=== PATIENT | female | born 1935 | race Caucasian/White ===

== ENCOUNTER 2020-10-25 11:59 | Inpatient (IN) | payer OTHER ==
[~2020-10-25] VITALS: Ht 149.9 cm; Wt 64.0 kg
[~2020-10-25 11:59] MED LIST: DULO60CA64 PO; FURO20TA4 PO; LISI20TA24 PO; LORA-868 PO; METF-444 PO; NIAC500T22 PO
[2020-10-25 12:40] LABS: BASOPHILS % (AUTO) 0.3 % (0.0-5.0); EOSINOPHILS % (AUTO) 0.7 % (0.0-8.0); HEMATOCRIT 35.4 % (36-48); LYMPHOCYTES % (AUTO) 2.6 % (21.0-51.0); MEAN CORPUSCULAR HEMOGLOBIN 28.5 pg (27.0-33.0); MEAN CORPUSCULAR HGB CONC 34.2 g/dL (32.0-36.0); MEAN CORPUSCULAR VOLUME 83.3 fL (79-99); MONOCYTES % (AUTO) 6.1 % (3.0-13.0); NEUTROPHILS % (AUTO) 89.9 % (40.0-77.0); PLATELET COUNT (AUTO) 200 K/uL (130-400); RED BLOOD CELL COUNT(AUTO) 4.25 MIL/uL (4.00-5.50); RED CELL DISTRIBUTION WIDTH 14.3 % (11.0-15.5); WHITE BLOOD COUNT (AUTO) 10.9 K/uL (4.8-10.8)
[2020-10-25 12:47] LABS: APPEARANCE,URINE Clear (CLEAR); BILIRUBIN,URINE Small (NEGATIVE); COLOR,URINE Dark Yellow (YELLOW); GLUCOSE, URINE (UA) Negative (NEGATIVE); KETONES,URINE Negative (NEGATIVE); LEUKOCYTE ESTERASE ,URINE Trace (NEGATIVE); NITRATE,URINE Negative (NEGATIVE); OCCULT BLOOD,URINE Negative (NEGATIVE); PH,URINE 7.5 (5.0-8.0); PROTEIN,URINE Negative (NEGATIVE)
[2020-10-25 12:55] LABS: BACTERIA,URINE Rare /HPF (None Seen); RBC,URINE None Seen /HPF (0-1); SQUAMOUS EPITHELIAL CELL,UR Few /HPF (0-2); WBC,URINE 0-1 /HPF (0-1)
[2020-10-25 13:01] LABS: ALBUMIN 3.5 g/dL (3.5-5.0); BILIRUBIN,TOTAL 3.2 mg/dL (0.2-1.0); CREATININE 1.2 mg/dL (0.5-1.5); POTASSIUM 3.7 mmol/L (3.5-5.1); TOTAL PROTEIN, SERUM 6.9 g/dL (6.0-8.3)
[2020-10-25] MEDS ORDERED: ACETAMINOPHEN 325 MG TAB ONE (13:44)
[2020-10-25] MEDS ORDERED: ASPIRIN 325 MG TABLET ONE ×2 (13:44→13:47)
[2020-10-25 13:57] LABS: INR 1.04 (0.85-1.15); PROTHROMBIN TIME 11.3 SEC (9.6-11.6)
[2020-10-25 13:58] LABS: PARTIAL THROMBOPLASTIN TIME 23.9 SEC (26.3-35.5)
[2020-10-25] MEDS ORDERED: 0.9%NACL 1000ML 1,000 ML IV ONE (13:59)
[2020-10-25] MEDS ORDERED: 0.9%NACL 100ML 100 ML IV ONE (13:59)
[2020-10-25] MEDS ORDERED: CEFTRIAXONE 1G VIAL ONE (13:59)
[2020-10-25] MEDS ORDERED: AZITHROMYCIN 250 MG TABLET PO ONE (14:06)
[2020-10-25 14:15] LABS: CREATINE KINASE, TOTAL 151 U/L (21-232); LIPASE 62 U/L (114-286)
[2020-10-25 14:19] LABS: ABG BASE EXCESS -2.4 mmol/L (-2.0-3.0); ABG HCO3 20.9 mmol/L (21.0-28.0); ABG OXYGEN SATURATION 92.4 % (95.0-99.0); ABG PCO2 32 mmHg (32-45)
[2020-10-25] MEDS ORDERED: ONDANSETRON 4MG INJ IVP PRN (16:30)
[2020-10-25] MEDS ORDERED: ACETAMINOPHEN 650 MG SUPPOSITORY RC PRN (16:30)
[2020-10-25] MEDS ORDERED: LACTULOSE 20 GM/30 ML UDCUP PO PRN (16:30)
[2020-10-25] MEDS ORDERED: MORPHINE 2 MG SYG IVP PRN (16:30)
[2020-10-25] MEDS: LACTATED RINGERS 1000ML 1,000 ML IV SCH ×2 (16:30→22:35)
[2020-10-25] MEDS ORDERED: IOHEXOL-350 75 ML VIAL IV ONE (16:54)
[2020-10-25] MEDS ORDERED: LEVOFLOXACIN 500 MG/D5W 100 ML IV SCH (17:00)
[2020-10-25] MEDS ORDERED: LEVOFLOXACIN 500 MG/D5W 100 ML 100 ML IV ONE (17:00)
[2020-10-25] MEDS ORDERED: KETOROLAC 30MG VIAL (30MG/ML) ONE (17:34)
[2020-10-25] MEDS ORDERED: CLINDAMYCIN IVPB 600MG/50ML 0 ML IV ONE (17:35)
[2020-10-25] MEDS ORDERED: HYDROCODONE/ACETAMINOPHEN 5/325 MG TAB ONE (17:35)
[2020-10-25] MEDS ORDERED: LACTATED RINGERS 1000ML 1,000 ML IV ONE (17:37)
[2020-10-25] MEDS ORDERED: LEVOFLOXACIN 500 MG/D5W 100 ML 100 ML ONE (17:37)
[2020-10-25] MEDS: METRONIDAZOLE 500MG/100ML BAG 100 ML IVPB SCH (18:00)
[2020-10-25 18:18] LABS: CREATINE KINASE, TOTAL 147 U/L (21-232); MYOGLOBIN 173 ng/mL (10-92); TROPONIN I < 0.04 ng/mL (0.00-0.06)
[2020-10-25] MEDS ORDERED: METRONIDAZOLE 500MG/100ML BAG 100 ML ONE (21:38)
[2020-10-25] MEDS ORDERED: FAMOTIDINE 20MG VIAL IV ONE (21:39)
[2020-10-25 22:08] VITALS: BP 123/57
[2020-10-25] MEDS: FAMOTIDINE 20MG VIAL IV SCH (22:34)
[2020-10-25 22:49] LABS: CREATINE KINASE, TOTAL 319 U/L (21-232); MYOGLOBIN 260 ng/mL (10-92); TROPONIN I < 0.04 ng/mL (0.00-0.06)
[2020-10-25] MEDS ORDERED: LORA10TA7 PO (22:58)
[2020-10-25] MEDS ORDERED: METF-444 PO (22:58)
[2020-10-25] MEDS ORDERED: PANT40TA54 PO (22:58)
[2020-10-25] MEDS ORDERED: DULO60CA64 PO (22:58)
[2020-10-25] MEDS ORDERED: LISI5TAB21 PO (22:58)
[2020-10-25] MEDS ORDERED: PRAV20TA4 PO (22:58)
[2020-10-25 23:42] VITALS: BP 110/49
[2020-10-26] VITALS (7 sets, daily range): BP systolic 90–127; BP diastolic 34–59
[2020-10-26] MEDS ORDERED: ALBUTEROL 0.083% 2.5 MG/3 ML INH IH ONE (01:57)
[2020-10-26] MEDS: ALBUTEROL 0.083% 2.5 MG/3 ML INH IH SCH ×7 (02:00→22:44)
[2020-10-26] MEDS: METRONIDAZOLE 500MG/100ML BAG 100 ML IVPB SCH ×3 (03:34→17:21)
[2020-10-26 05:06] LABS: BASOPHILS % (AUTO) 0.1 % (0.0-5.0); EOSINOPHILS % (AUTO) 0.4 % (0.0-8.0); MEAN CORPUSCULAR HEMOGLOBIN 27.7 pg (27.0-33.0); MEAN CORPUSCULAR HGB CONC 33.1 g/dL (32.0-36.0); MEAN CORPUSCULAR VOLUME 83.8 fL (79-99); MONOCYTES % (AUTO) 7.9 % (3.0-13.0); NEUTROPHILS % (AUTO) 84.3 % (40.0-77.0); PLATELET COUNT (AUTO) 130 K/uL (130-400); RED BLOOD CELL COUNT(AUTO) 3.46 MIL/uL (4.00-5.50); RED CELL DISTRIBUTION WIDTH 14.3 % (11.0-15.5); WHITE BLOOD COUNT (AUTO) 6.9 K/uL (4.8-10.8)
[2020-10-26 05:16] LABS: INR 1.32 (0.85-1.15)
[2020-10-26 05:37] LABS: CARBON DIOXIDE 25 mmol/L (21-32); CHLORIDE 105 mmol/L (101-111); CREATINE KINASE, TOTAL 360 U/L (21-232); CREATININE 0.9 mg/dL (0.5-1.5); GLOMERULAR FILTR. RATE CALC 64 mL/min (>60); GLUCOSE,RANDOM 114 mg/dL (70-105); MYOGLOBIN 215 ng/mL (10-92); PHOSPHORUS 2.8 mg/dL (2.5-4.9); POTASSIUM 3.5 mmol/L (3.5-5.1); SODIUM SERUM 139 mmol/L (136-145); THYROID STIMULATING HORMONE 1.64 uIU/mL (0.36-3.74); TROPONIN I < 0.04 ng/mL (0.00-0.06); UREA NITROGEN, BLOOD 17 mg/dL (7-18)
[2020-10-26] MEDS: LACTATED RINGERS 1000ML 1,000 ML IV SCH ×2 (08:54→15:56)
[2020-10-26] MEDS: ENOXAPARIN SODIUM 40 MG/0.4 ML SYRINGE SQ SCH (08:55)
[2020-10-26] MEDS ORDERED: MAGNESIUM 2GM PREMIX 50ML 50 ML IV PRN (15:00)
[2020-10-26] MEDS: FAMOTIDINE 20MG VIAL IV SCH (21:49)
[2020-10-27] MEDS: LACTATED RINGERS 1000ML 1,000 ML IV SCH ×3 (01:12→20:51)
[2020-10-27] MEDS: ALBUTEROL 0.083% 2.5 MG/3 ML INH IH SCH ×7 (01:20→22:01)
[2020-10-27 04:00] VITALS: BP 128/74
[2020-10-27 05:24] LABS: HEMATOCRIT 27.2 % (36-48); MEAN CORPUSCULAR HEMOGLOBIN 28.4 pg (27.0-33.0); MEAN CORPUSCULAR HGB CONC 34.6 g/dL (32.0-36.0); MEAN CORPUSCULAR VOLUME 82.2 fL (79-99); RED BLOOD CELL COUNT(AUTO) 3.31 MIL/uL (4.00-5.50); RED CELL DISTRIBUTION WIDTH 14.5 % (11.0-15.5)
[2020-10-27 05:48] LABS: ALBUMIN 2.9 g/dL (3.5-5.0); BILIRUBIN,TOTAL 2.2 mg/dL (0.2-1.0); CREATININE 0.9 mg/dL (0.5-1.5); POTASSIUM 3.2 mmol/L (3.5-5.1); TOTAL PROTEIN, SERUM 6.6 g/dL (6.0-8.3)
[2020-10-27 08:00] VITALS: BP 155/67
[2020-10-27] MEDS: ENOXAPARIN SODIUM 40 MG/0.4 ML SYRINGE SQ SCH (10:58)
[2020-10-27] MEDS: LEVOFLOXACIN 250 MG/D5W 50ML 50 ML IVPB SCH (10:58)
[2020-10-27 12:08] VITALS: BP 164/66
[2020-10-27] MEDS ORDERED: METRONIDAZOLE 500MG/100ML BAG 100 ML ONE (12:52)
[2020-10-27] MEDS: METRONIDAZOLE 500MG/100ML BAG 100 ML IVPB SCH ×2 (13:01→20:52)
[2020-10-27] MEDS ORDERED: LIDOCAINE PF 100MG/5ML (2%) SYRINGE 5ML ONE (13:21)
[2020-10-27] MEDS ORDERED: PROPOFOL 10 MG/ML 20ML VIAL IV ONE (13:21)
[2020-10-27] MEDS ORDERED: SUCCINYLCHOLINE CHLORIDE 20 MG/ML 10 ML VIAL ONE (13:21)
[2020-10-27] MEDS ORDERED: GLYCOPYRROLATE 1 MG/5 ML SYRINGE ONE (13:21)
[2020-10-27] MEDS ORDERED: NEOSTIGMINE 5MG/5ML SYR IV ONE (13:22)
[2020-10-27] MEDS ORDERED: ROCURONIUM 10MG/1ML SYR 10 MG/ML ML ONE (13:22)
[2020-10-27] MEDS ORDERED: FENTANYL CITRATE PF 50 MCG/1 ML 2ML VIAL ONE (13:22)
[2020-10-27] MEDS ORDERED: 0.9%NACL 1000ML 1,000 ML IV ONE (14:10)
[2020-10-27 14:26] LABS: ABG BASE EXCESS -1.8 mmol/L (-2.0-3.0); ABG OXYGEN SATURATION 91.4 % (95.0-99.0); ABG PCO2 30 mmHg (32-45)
[2020-10-27] MEDS ORDERED: SOLU-MEDROL 125MG VIAL ONE (14:37)
[2020-10-27] MEDS ORDERED: HYDROCORTISONE SOD SUCCINATE 100 MG/2 ML VIAL ONE (14:38)
[2020-10-27] MEDS ORDERED: FUROSEMIDE 40MG VIAL IV SCH (14:43)
[2020-10-27 16:00] VITALS: BP 152/62
[2020-10-27] MEDS ORDERED: LEVOFLOXACIN 250 MG/D5W 50ML 50 ML IVPB SCH (17:00)
[2020-10-27 19:52] VITALS: BP 137/61
[2020-10-27] MEDS: FAMOTIDINE 20MG VIAL IV SCH (20:51)
[2020-10-27 23:20] VITALS: BP 142/62
[2020-10-28] MEDS: LACTATED RINGERS 1000ML 1,000 ML IV SCH ×3 (00:30→20:45)
[2020-10-28] MEDS: FUROSEMIDE 20MG VIAL IV SCH ×3 (01:30→21:21)
[2020-10-28] MEDS: ALBUTEROL 0.083% 2.5 MG/3 ML INH IH SCH ×6 (02:00→23:09)
[2020-10-28 04:04] VITALS: BP 128/64
[2020-10-28 04:34] LABS: ABG BASE EXCESS 3.7 mmol/L (-2.0-3.0); ABG HCO3 26.8 mmol/L (21.0-28.0); ABG OXYGEN SATURATION 95.1 % (95.0-99.0); ABG PCO2 36 mmHg (32-45)
[2020-10-28] MEDS: METRONIDAZOLE 500MG/100ML BAG 100 ML IVPB SCH ×3 (04:43→21:20)
[2020-10-28 04:51] LABS: HEMATOCRIT 27.3 % (36-48); MEAN CORPUSCULAR HEMOGLOBIN 28.2 pg (27.0-33.0); MEAN CORPUSCULAR HGB CONC 34.8 g/dL (32.0-36.0); RED BLOOD CELL COUNT(AUTO) 3.37 MIL/uL (4.00-5.50); RED CELL DISTRIBUTION WIDTH 14.5 % (11.0-15.5); WHITE BLOOD COUNT (AUTO) 6.9 K/uL (4.8-10.8)
[2020-10-28 04:57] LABS: CREATININE 0.8 mg/dL (0.5-1.5); POTASSIUM 3.2 mmol/L (3.5-5.1)
[2020-10-28 08:00] VITALS: BP 140/59
[2020-10-28] MEDS: ENOXAPARIN SODIUM 40 MG/0.4 ML SYRINGE SQ SCH (08:15)
[2020-10-28] MEDS ORDERED: LIDOCAINE HCL-MPF 1% 2ML VIAL IV PRN (10:15)
[2020-10-28] MEDS ORDERED: POTASSIUM CHLORIDE 20MEQ/100ML 100 ML IV PRN (10:15)
[2020-10-28] MEDS ORDERED: DULOXETINE HCL 30 MG CAP PO SCH (10:38)
[2020-10-28] MEDS ORDERED: SUCCINYLCHOLINE CHLORIDE 20 MG/ML 10 ML VIAL ONE (10:54)
[2020-10-28] MEDS ORDERED: DEXAMETHASONE SOD PHOSPHATE 10MG/ML 1ML VIAL ONE (10:54)
[2020-10-28] MEDS ORDERED: LIDOCAINE PF 100MG/5ML (2%) SYRINGE 5ML ONE (10:54)
[2020-10-28] MEDS ORDERED: PROPOFOL 10 MG/ML 20ML VIAL IV ONE (10:54)
[2020-10-28] MEDS ORDERED: MIDAZOLAM HCL 1 MG/ML 2ML VIAL ONE (10:55)
[2020-10-28] MEDS ORDERED: GLYCOPYRROLATE 1 MG/5 ML SYRINGE ONE (10:55)
[2020-10-28] MEDS ORDERED: ROCURONIUM 10MG/1ML SYR 10 MG/ML ML ONE (10:55)
[2020-10-28] MEDS ORDERED: FENTANYL CITRATE PF 50 MCG/1 ML 2ML VIAL ONE (10:56)
[2020-10-28 12:00] VITALS: BP 140/63
[2020-10-28] MEDS: POTASSIUM CHLORIDE 10% ELIXIR 20 MEQ/15 ML UDCUP PO PRN ×3 (14:18→17:50)
[2020-10-28 16:00] VITALS: BP 163/69
[2020-10-28 20:35] VITALS: BP 142/57
[2020-10-28] MEDS: ATORVASTATIN 20 MG TABLET PO SCH (21:20)
[2020-10-28] MEDS: FAMOTIDINE 20MG VIAL IV SCH (21:21)
[2020-10-28 23:39] VITALS: BP 130/69
[2020-10-29] VITALS (26 sets, daily range): BP systolic 106–168; BP diastolic 47–92
[2020-10-29] MEDS: ALBUTEROL 0.083% 2.5 MG/3 ML INH IH SCH ×3 (02:00→22:16)
[2020-10-29 05:32] LABS: CREATININE 0.8 mg/dL (0.5-1.5); HEMATOCRIT 32.9 % (36-48); MEAN CORPUSCULAR HEMOGLOBIN 27.3 pg (27.0-33.0); MEAN CORPUSCULAR HGB CONC 33.7 g/dL (32.0-36.0); NUCLEATED RED BLOOD CELLS 0.6 % (0.0-0.19); POTASSIUM 3.6 mmol/L (3.5-5.1); RED BLOOD CELL COUNT(AUTO) 4.06 MIL/uL (4.00-5.50); RED CELL DISTRIBUTION WIDTH 14.6 % (11.0-15.5); WHITE BLOOD COUNT (AUTO) 6.9 K/uL (4.8-10.8)
[2020-10-29] MEDS ORDERED: BUPIVACAINE/PF 0.5% 30ML VIAL ONE (06:16)
[2020-10-29] MEDS: METRONIDAZOLE 500MG/100ML BAG 100 ML IVPB SCH ×3 (06:49→21:45)
[2020-10-29] MEDS: DULOXETINE HCL 30 MG CAP PO SCH (09:00)
[2020-10-29] MEDS ORDERED: FUROSEMIDE 20 MG TABLET PO SCH (09:00)
[2020-10-29] MEDS: ENOXAPARIN SODIUM 40 MG/0.4 ML SYRINGE SQ SCH (09:00)
[2020-10-29] MEDS: LACTATED RINGERS 1000ML 1,000 ML IV SCH ×2 (10:05→23:25)
[2020-10-29] MEDS: FUROSEMIDE 20MG VIAL IV SCH ×2 (10:31→20:34)
[2020-10-29] MEDS: LEVOFLOXACIN 250 MG/D5W 50ML 50 ML IVPB SCH (10:31)
[2020-10-29] MEDS ORDERED: INDOCYANINE GREEN 25 MG VIAL IJ ONE (12:37)
[2020-10-29] MEDS ORDERED: SUCCINYLCHOLINE 200MG/10ML SYR ONE (12:46)
[2020-10-29] MEDS ORDERED: DEXAMETHASONE SOD PHOSPHATE 10MG/ML 1ML VIAL ONE (12:46)
[2020-10-29] MEDS ORDERED: LIDOCAINE PF 100MG/5ML (2%) SYRINGE 5ML ONE (12:46)
[2020-10-29] MEDS ORDERED: NEOSTIGMINE 5MG/5ML SYR IV ONE (12:47)
[2020-10-29] MEDS ORDERED: ROCURONIUM 10MG/1ML SYR 10 MG/ML ML ONE (12:47)
[2020-10-29] MEDS ORDERED: GLYCOPYRROLATE 1 MG/5 ML SYRINGE ONE (12:47)
[2020-10-29] MEDS ORDERED: FENTANYL CITRATE PF 50 MCG/1 ML 2ML VIAL ONE (12:47)
[2020-10-29] MEDS ORDERED: PROPOFOL 10 MG/ML 20ML VIAL IV ONE (12:47)
[2020-10-29] MEDS ORDERED: EPHEDRINE SULFATE 50 MG/ML AMPULE ONE (13:09)
[2020-10-29] MEDS ORDERED: MORPHINE 4 MG SYG IV PRN (16:45)
[2020-10-29] MEDS ORDERED: ONDANSETRON 4MG INJ IVP PRN (16:45)
[2020-10-29] MEDS: LORATADINE 10 MG TABLET PO SCH (18:12)
[2020-10-29] MEDS: LISINOPRIL 5 MG TABLET PO SCH (18:12)
[2020-10-29] MEDS: ATORVASTATIN 20 MG TABLET PO SCH (20:33)
[2020-10-29] MEDS: FAMOTIDINE 20MG VIAL IV SCH (20:34)
[2020-10-30] MEDS: ACETAMINOPHEN 325 MG TAB PO PRN ×2 (01:25→21:34)
[2020-10-30] MEDS: ALBUTEROL 0.083% 2.5 MG/3 ML INH IH SCH ×5 (01:59→18:00)
[2020-10-30 04:16] VITALS: BP 103/60
[2020-10-30 04:52] LABS: HEMATOCRIT 32.4 % (36-48); MEAN CORPUSCULAR HEMOGLOBIN 28.2 pg (27.0-33.0); MEAN CORPUSCULAR HGB CONC 34.3 g/dL (32.0-36.0); MEAN CORPUSCULAR VOLUME 82.2 fL (79-99); RED BLOOD CELL COUNT(AUTO) 3.94 MIL/uL (4.00-5.50); RED CELL DISTRIBUTION WIDTH 14.9 % (11.0-15.5); WHITE BLOOD COUNT (AUTO) 7.9 K/uL (4.8-10.8)
[2020-10-30 05:08] LABS: ALBUMIN 2.7 g/dL (3.5-5.0); BILIRUBIN,TOTAL 1.1 mg/dL (0.2-1.0); CREATININE 0.8 mg/dL (0.5-1.5); POTASSIUM 3.3 mmol/L (3.5-5.1); TOTAL PROTEIN, SERUM 6.3 g/dL (6.0-8.3)
[2020-10-30] MEDS: METRONIDAZOLE 500MG/100ML BAG 100 ML IVPB SCH ×3 (05:08→21:23)
[2020-10-30] MEDS: KCL 20 MEQ ERTAB PO PRN ×2 (06:20→08:20)
[2020-10-30 08:00] VITALS: BP 140/65
[2020-10-30] MEDS: DULOXETINE HCL 30 MG CAP PO SCH (08:17)
[2020-10-30] MEDS: ENOXAPARIN SODIUM 40 MG/0.4 ML SYRINGE SQ SCH (08:18)
[2020-10-30] MEDS: FUROSEMIDE 20MG VIAL IV SCH ×2 (08:18→19:48)
[2020-10-30] MEDS: SULFAMETHOX-TMP DS 800/160 TAB PO SCH ×2 (08:19→19:48)
[2020-10-30] MEDS: LORATADINE 10 MG TABLET PO SCH (08:19)
[2020-10-30] MEDS: LISINOPRIL 5 MG TABLET PO SCH (08:19)
[2020-10-30] MEDS ORDERED: ACETAMINOPHEN WITH CODEINE 1 TAB TAB PO PRN (08:45)
[2020-10-30] MEDS: LACTATED RINGERS 1000ML 1,000 ML IV SCH (11:46)
[2020-10-30 12:00] VITALS: BP 91/58
[2020-10-30 16:00] VITALS: BP 126/68
[2020-10-30] MEDS: ATORVASTATIN 20 MG TABLET PO SCH (19:48)
[2020-10-30] MEDS: FAMOTIDINE 20MG VIAL IV SCH (19:48)
[2020-10-30 19:59] VITALS: BP 131/58
[2020-10-30 23:40] VITALS: BP 126/51
[2020-10-31] MEDS: LACTATED RINGERS 1000ML 1,000 ML IV SCH ×2 (02:05→03:37)
[2020-10-31] MEDS: ALBUTEROL 0.083% 2.5 MG/3 ML INH IH SCH (02:09)
[2020-10-31 03:49] VITALS: BP 141/85
[2020-10-31 04:46] LABS: HEMATOCRIT 31.9 % (36-48); MEAN CORPUSCULAR HEMOGLOBIN 27.8 pg (27.0-33.0); MEAN CORPUSCULAR HGB CONC 33.9 g/dL (32.0-36.0); MEAN CORPUSCULAR VOLUME 82.2 fL (79-99); RED BLOOD CELL COUNT(AUTO) 3.88 MIL/uL (4.00-5.50); RED CELL DISTRIBUTION WIDTH 14.6 % (11.0-15.5); WHITE BLOOD COUNT (AUTO) 7.9 K/uL (4.8-10.8)
[2020-10-31 05:10] LABS: CREATININE 0.9 mg/dL (0.5-1.5); POTASSIUM 3.4 mmol/L (3.5-5.1)
[2020-10-31] MEDS: METRONIDAZOLE 500MG/100ML BAG 100 ML IVPB SCH ×2 (05:45→14:00)
[2020-10-31 08:00] VITALS: BP 136/73
[2020-10-31] MEDS: LORATADINE 10 MG TABLET PO SCH (09:24)
[2020-10-31] MEDS: LEVOFLOXACIN 250 MG/D5W 50ML 50 ML IVPB SCH (09:24)
[2020-10-31] MEDS: DULOXETINE HCL 30 MG CAP PO SCH (09:24)
[2020-10-31] MEDS: LISINOPRIL 5 MG TABLET PO SCH (09:24)
[2020-10-31] MEDS: SULFAMETHOX-TMP DS 800/160 TAB PO SCH (09:24)
[2020-10-31] MEDS: ENOXAPARIN SODIUM 40 MG/0.4 ML SYRINGE SQ SCH (09:25)
[2020-10-31] MEDS: FUROSEMIDE 20MG VIAL IV SCH (09:25)
[2020-10-31] MEDS: POTASSIUM CHLORIDE 10% ELIXIR 20 MEQ/15 ML UDCUP PO PRN (11:03)
[2020-10-31] MEDS ORDERED: ACET1TAB25 PO (11:28)
[2020-10-31 12:00] VITALS: BP 117/58
== END 2020-10-31 16:10 | disposition home or self-care (01) | DRG 417 ==
LOC: EDH 11:59 → EDHIP 16:28 → 4CH 21:32
PROVIDERS: ADMIT Internal Medicine Critical Care Medicine; ATTEND Internal Medicine Critical Care Medicine
PROC: 8E0W4CZ Robotic Assisted Procedure of Trunk Region, Percutaneous Endoscopic Approach (ICD-10-PCS; 2020-10-29)
PROC: 0FT44ZZ Resection of Gallbladder, Percutaneous Endoscopic Approach (ICD-10-PCS; principal; 2020-10-29 13:21)
DX: K81.0 Acute cholecystitis (principal); I50.33 Acute on chronic diastolic (congestive) heart failure; N39.0 Urinary tract infection, site not specified; E78.00 Pure hypercholesterolemia, unspecified; B96.20 Unspecified Escherichia coli [E. coli] as the cause of diseases classified elsewhere; E11.9 Type 2 diabetes mellitus without complications; E78.5 Hyperlipidemia, unspecified; E87.70 Fluid overload, unspecified; K66.0 Peritoneal adhesions (postprocedural) (postinfection); E66.3 Overweight; Z68.28 Body mass index [BMI] 28.0-28.9, adult; Z79.899 Other long term (current) drug therapy; Z90.710 Acquired absence of both cervix and uterus; Z79.84 Long term (current) use of oral hypoglycemic drugs; Z20.822 Contact with and (suspected) exposure to COVID-19; I11.0 Hypertensive heart disease with heart failure
CPT/HCPCS: 36415; 36600; 70450; 71045; 71275; 74176; 74181; 76705; 80048; 80053; 81001; 82435; 82550; 82728; 82803; 82947; 82948; 83605; 83615; 83690; 83735; 83874; 83880; 84100; 84132; 84145; 84295; 84443; 84484; 85018; 85025; 85027; 85378; 85610; 85730; 87040; 87077; 87186; 87426; 88304; 93005; 93306; 93356; 94010; 94640; 94664; 94760; G0378; J0330; J0696; J1100; J1650; J1720; J1885; J1940; J1956; J2001; J2250; J2405; J2704; J2710; J2930; J3010; J3475; J3480; J3490; J7030; J7120; Q9967; U0003

== ENCOUNTER 2021-08-10 11:00 | Observation (INO) | payer OTHER ==
[~2021-08-10] VITALS: Ht 149.9 cm; Wt 63.0 kg
[2021-08-14 09:52] LABS: EOSINOPHILS % (AUTO) 3.1 % (0.0-8.0); HEMATOCRIT 39.8 % (36-48); LYMPHOCYTES % (AUTO) 26.6 % (21.0-51.0); MEAN CORPUSCULAR HEMOGLOBIN 28.3 pg (27.0-33.0); MEAN CORPUSCULAR HGB CONC 32.9 g/dL (32.0-36.0); MONOCYTES % (AUTO) 10.9 % (3.0-13.0); NEUTROPHILS % (AUTO) 57.9 % (40.0-77.0); PLATELET COUNT (AUTO) 262 K/uL (130-400); RED BLOOD CELL COUNT(AUTO) 4.63 MIL/uL (4.00-5.50); RED CELL DISTRIBUTION WIDTH 13.6 % (11.0-15.5); WHITE BLOOD COUNT (AUTO) 6.1 K/uL (4.8-10.8)
[2021-08-14 10:06] LABS: POTASSIUM 5.1 mmol/L (3.5-5.1)
[2021-08-17 09:03] VITALS: BP 179/97
[2021-08-17] MEDS ORDERED: METF-444 PO (09:44)
[2021-08-17] MEDS ORDERED: DULO60CA45 PO (09:44)
[2021-08-17] MEDS ORDERED: PANT40TA54 PO (09:44)
[2021-08-17] MEDS ORDERED: LISI5TAB21 PO (09:44)
[2021-08-17] MEDS ORDERED: FURO20TA4 PO (09:44)
[2021-08-17] MEDS ORDERED: PRAV20TA4 PO (09:44)
[2021-08-17] MEDS ORDERED: LORA10TA7 PO (09:44)
[2021-08-18] VITALS (22 sets, daily range): BP systolic 110–143; BP diastolic 50–67
[2021-08-18] MEDS: CEFAZOLIN SODIUM 1 GM VIAL IVP SCH ×2 (06:00→07:30)
[2021-08-18] MEDS ORDERED: 0.9%NACL 1000ML 1,000 ML IV ONE (06:17)
[2021-08-18] MEDS ORDERED: BUPIVACAINE/EPI/PF 0.25% 30ML VIAL IJ ONE ×2 (06:41→07:11)
[2021-08-18] MEDS ORDERED: THROMBIN-JMI 20000 UNIT KIT TP ONE (06:41)
[2021-08-18] MEDS ORDERED: MORPHINE PF 100MG/10ML AMP IV ONE (06:41)
[2021-08-18] MEDS ORDERED: CEFAZOLIN SODIUM 1 GM VIAL ONE (06:41)
[2021-08-18] MEDS ORDERED: LIDOCAINE PF 100MG/5ML (2%) SYRINGE 5ML ONE (06:47)
[2021-08-18] MEDS ORDERED: SUCCINYLCHOLINE CHLORIDE 20 MG/ML 10 ML VIAL ONE (06:47)
[2021-08-18] MEDS ORDERED: PROPOFOL 10 MG/ML 20ML VIAL IV ONE (06:48)
[2021-08-18] MEDS ORDERED: MIDAZOLAM HCL 1 MG/ML 2ML VIAL ONE (06:48)
[2021-08-18] MEDS ORDERED: NEOSTIGMINE 5MG/5ML SYR IV ONE (06:48)
[2021-08-18] MEDS ORDERED: DEXAMETHASONE SOD PHOSPHATE 10MG/ML 1ML VIAL ONE ×2 (06:48→06:51)
[2021-08-18] MEDS ORDERED: GLYCOPYRROLATE 1 MG/5 ML SYRINGE ONE (06:48)
[2021-08-18] MEDS ORDERED: ROCURONIUM 10MG/1ML SYR 10 MG/ML ML ONE (06:49)
[2021-08-18] MEDS ORDERED: ONDANSETRON 4MG INJ ONE (06:49)
[2021-08-18] MEDS ORDERED: FENTANYL CITRATE PF 50 MCG/1 ML 2ML VIAL ONE ×2 (06:50→09:43)
[2021-08-18] MEDS ORDERED: HYDROCODONE/ACETAMINOPHEN 5/325 MG TAB PO PRN (11:00)
[2021-08-18] MEDS ORDERED: PROMETHAZINE HCL 25 MG/ML 1ML AMPULE IM PRN (11:00)
[2021-08-18] MEDS ORDERED: 0.9%NACL 10ML VIAL IVP PRN (11:00)
[2021-08-18] MEDS ORDERED: CEFAZOLIN SODIUM 1 GM VIAL IVP SCH (11:00)
[2021-08-18] MEDS: DEXAMETHASONE SOD PHOSPHATE 4 MG/ML 1ML VIAL IVP SCH ×3 (12:30→23:06)
[2021-08-18] MEDS: LACTATED RINGERS 1000ML 1,000 ML IV SCH (14:57)
[2021-08-18] MEDS: METFORMIN HCL 500 MG TABLET PO SCH (16:21)
[2021-08-18] MEDS: MORPHINE 2 MG SYG IVP PRN ×2 (16:25→21:34)
[2021-08-18] MEDS ORDERED: SIMVASTATIN 20 MG TABLET PO SCH (21:00)
[2021-08-19] VITALS: BP 107/65
[2021-08-19] MEDS: LACTATED RINGERS 1000ML 1,000 ML IV SCH (00:20)
[2021-08-19 04:00] VITALS: BP 112/54
[2021-08-19] MEDS: DEXAMETHASONE SOD PHOSPHATE 4 MG/ML 1ML VIAL IVP SCH (04:27)
[2021-08-19 08:00] VITALS: BP 129/63
[2021-08-19] MEDS: METFORMIN HCL 500 MG TABLET PO SCH (08:57)
[2021-08-19] MEDS ORDERED: PANTOPRAZOLE 40 MG TAB DR PO SCH (09:00)
[2021-08-19] MEDS ORDERED: FUROSEMIDE 20 MG TABLET PO SCH (09:00)
[2021-08-19] MEDS ORDERED: DULOXETINE HCL 30 MG CAP PO SCH (09:00)
[2021-08-19] MEDS ORDERED: LORATADINE 10 MG TABLET PO SCH (09:00)
[2021-08-19] MEDS ORDERED: LISINOPRIL 5 MG TABLET PO SCH (09:00)
[2021-08-19 11:52] VITALS: BP 119/43
== END 2021-08-19 13:00 | disposition home or self-care (01) ==
LOC: EDSTATUS 11:00 → DAHIP 08-18 05:33 → 3CH 08-18 12:14
PROVIDERS: ADMIT Neurological Surgery; ATTEND Neurological Surgery
DX: M48.061 Spinal stenosis, lumbar region without neurogenic claudication (principal); Z20.822 Contact with and (suspected) exposure to COVID-19; I10 Essential (primary) hypertension; E11.9 Type 2 diabetes mellitus without complications; K76.0 Fatty (change of) liver, not elsewhere classified; Z90.710 Acquired absence of both cervix and uterus; Z79.899 Other long term (current) drug therapy
CPT/HCPCS: 36415; 63047; 63048; 71045; 72020; 80051; 82948 ×2; 85025; 87635; 96374; 96375; 96376 ×2; A4215; A4216; A4221; A4222; A4223 ×2; A4344; A4510; A4600; A4649 ×3; A4663; G0378 ×25; G0379; J0330; J0690 ×3; J1100 ×5; J2001; J2250; J2274; J2405; J2704; J2710; J3010 ×2; J3490 ×3; J7030; J7120 ×2

== ENCOUNTER → 2022-07-22 | Outpatient (CLI) | payer OTHER ==
[~2022-07-22] MED LIST changes: +DULO60CA45 PO; -DULO60CA64 PO; -LISI20TA24 PO; +LISI5TAB21 PO; -LORA-868 PO; +LORA10TA7 PO; -NIAC500T22 PO; +PANT40TA54 PO; +PRAV20TA4 PO
== END | disposition home or self-care (01) ==
LOC: RAH 08:42
PROVIDERS: ATTEND Family Medicine
DX: K76.0 Fatty (change of) liver, not elsewhere classified (principal); R94.5 Abnormal results of liver function studies
CPT/HCPCS: 76700